=== PATIENT | female | born 1980 | race American Indian/Alaskan Native ===

== ENCOUNTER 2016-10-04 16:07 | Emergency (ER) | payer SELFPAY ==
[2016-10-04 17:03] LABS: Bacteria,Urine 3+ /HPF (Negative); Bilirubin,Urine NEG (Negative); Blood,Urine SM (Negative); Ketones,Urine NEG (Negative); Leukocyte Esterase,Urine LG (Negative); Mucus,Urine 2+ /HPF; Nitrite,Urine NEG (Negative); Urobilinogen,Urine < 2.0 mg/dL (<2.0)
--- NOTE | 2016-10-04 19:49 | Emergency Department Report ---
ED Female HPI - General Chief complaint: Urogenital-Female Stated complaint: VAG IRRATATION Time Seen by Provider: 10/04/16 18:53 Source: patient Mode of arrival: Ambulatory Limitations: No Limitations - History of Present Illness Complaint: vaginal discharge - Related Data Previous Rx's Medication Instructions Recorded Last Taken Type Albuterol Sulfate [Ventolin HFA] 2 puff IH Q4H PRN #1 hfa.aer.ad 12/20/12 Unknown Rx HYDROcodone/APAP 5-325 [[place] 1 each PO Q6HR PRN #10 tablet 12/20/12 Unknown Rx 5/325 mg] Allergies Allergy/AdvReac Type Severity Reaction Status Date / Time aspirin Allergy Swelling Verified 12/20/12 00:40 Penicillins Allergy Hives Verified 12/20/12 00:40 ED Review of Systems ROS: Stated complaint: VAG IRRATATION Other details as noted in HPI ED Past Medical Hx - Past Medical History Additional medical history: Heart murmur - Surgical History Additional Surgical History: Tube ligation - Social History Smoking Status: Current Every Day Smoker Substance Use Type: None - Medications Home Medications: Home Medications Medication Instructions Recorded Confirmed Last Taken Type Albuterol Sulfate [Ventolin HFA] 2 puff IH Q4H PRN #1 hfa.aer.ad 12/20/12 Unknown Rx HYDROcodone/APAP 5-325 [[place] 1 each PO Q6HR PRN #10 tablet 12/20/12 Unknown Rx 5/325 mg] ED Physical Exam - General Limitations: No Limitations ED Course Vital Signs 10/04/16 16:29 Temperature 98.6 F Pulse Rate 102 H Respiratory 20 Rate Blood Pressure 116/79 O2 Sat by Pulse 100 Oximetry Critical care attestation.: If time is entered above; I have spent that time in minutes in the direct care of this critically ill patient, excluding procedure time. ED Disposition Condition: Stable Referrals: PRIMARY CARE, [Primary Care Provider] - 3-5 Days
--- NOTE | 2016-10-04 21:02 | Emergency Department Report ---
Entered by BROWN MULLER, acting as scribe for MAGAN FITZPATRICK PA. ED Female HPI - General Chief complaint: Urogenital-Female Stated complaint: VAG IRRATATION Time Seen by Provider: 10/04/16 18:53 Source: patient Mode of arrival: Ambulatory Limitations: No Limitations - History of Present Illness Initial comments: 36 year old female presents to ED with c/o vaginal irritation and discharge for about 1 week. Patient reports she felt vaginal itching with thick cottage cheese discharge. Patient reports using sex toys but denies douching and vaginal bleeding. Patient notes she had Hx of STD (trichomoniasis) in 2011. Patient denies frequency, urgency, fever, chills, abd pain, nausea, and vomiting. Patient states she smokes cigarettes daily and PMHx of heart murmur. Allergic to ASA and penicillin. MD Complaint: vaginal discharge (thick cottage cheese ), possible STD -: days(s) (7) Severity: moderate Severity scale (0 -10): 4 Quality: burning Consistency: constant Improves with: none Worsens with: urination, movement Are you Now?: No Associated Symptoms: denies other symptoms, vaginal discharge, dysuria. denies : vaginal bleeding, abdominal pain, nausea/vomiting, fever/chills, headaches, hematuria, weakness - Related Data Sexually active: Yes (Partner was present in the room) Previous Rx's Medication Instructions Recorded Last Taken Type Albuterol Sulfate [Ventolin HFA] 2 puff IH Q4H PRN #1 hfa.aer.ad 12/20/12 Unknown Rx HYDROcodone/APAP 5-325 [[place] 1 each PO Q6HR PRN #10 tablet 12/20/12 Unknown Rx 5/325 mg] Fluconazole [Diflucan TAB] 150 mg PO ONCE #1 tablet 10/04/16 Unknown Rx metroNIDAZOLE [Flagyl TAB] 500 mg PO Q12HR #14 tab 10/04/16 Unknown Rx Allergies Allergy/AdvReac Type Severity Reaction Status Date / Time aspirin Allergy Swelling Verified 12/20/12 00:40 Penicillins Allergy Hives Verified 12/20/12 00:40 ED Review of Systems Comment: All other systems reviewed and negative Constitutional: denies: chills, fever Respiratory: denies: cough, shortness of breath, wheezing Cardiovascular: denies: chest pain, palpitations Gastrointestinal: denies: abdominal pain, nausea, vomiting, diarrhea Genitourinary: dysuria. denies: urgency, frequency, discharge Musculoskeletal: denies: back pain, joint swelling, arthralgia Skin: denies: rash, lesions Neurological: denies: headache, weakness, paresthesias ED Past Medical Hx - Past Medical History Additional medical history: Heart murmur - Surgical History Additional Surgical History: Tube ligation - Social History Smoking Status: Current Every Day Smoker Substance Use Type: None - Medications Home Medications: Home Medications Medication Instructions Recorded Confirmed Last Taken Type Albuterol Sulfate [Ventolin HFA] 2 puff IH Q4H PRN #1 hfa.aer.ad 12/20/12 Unknown Rx HYDROcodone/APAP 5-325 [[place] 1 each PO Q6HR PRN #10 tablet 12/20/12 Unknown Rx 5/325 mg] Fluconazole [Diflucan TAB] 150 mg PO ONCE #1 tablet 10/04/16 Unknown Rx metroNIDAZOLE [Flagyl TAB] 500 mg PO Q12HR #14 tab 10/04/16 Unknown Rx ED Physical Exam - General Limitations: No Limitations General appearance: alert, in no apparent distress - Head Head exam: Present: atraumatic, normocephalic, normal inspection - Eye Eye exam: Present: normal appearance, PERRL, EOMI - ENT ENT exam: Present: mucous membranes moist - Neck Neck exam: Present: normal inspection, full ROM. Absent: tenderness, meningismus - Respiratory Respiratory exam: Present: normal lung sounds bilaterally. Absent: respiratory distress, wheezes, rales, rhonchi, stridor - Cardiovascular Cardiovascular Exam: Present: regular rate, normal rhythm. Absent: systolic murmur, diastolic murmur, rubs, gallop - GI/Abdominal GI/Abdominal exam: Present: soft, normal bowel sounds. Absent: distended, tenderness, guarding, rebound, rigid, diminished bowel sounds - External exam: Present: normal external exam Speculum exam: Present: vaginal discharge (thick white cheese like vaginal discharge with fishy odor) Bi-manual exam: Present: normal bi-manual exam - Extremities Exam Extremities exam: Present: normal inspection, full ROM, normal capillary refill. Absent: tenderness, pedal edema, joint swelling - Back Exam Back exam: Present: normal inspection, full ROM. Absent: tenderness - Neurological Exam Neurological exam: Present: alert, oriented X3, CN II-XII intact - Psychiatric Psychiatric exam: Present: normal affect, normal mood - Skin Skin exam: Present: warm, dry, intact, normal color. Absent: rash ED Course Vital Signs 10/04/16 16:29 Temperature 98.6 F Pulse Rate 102 H Respiratory 20 Rate Blood Pressure 116/79 O2 Sat by Pulse 100 Oximetry ED Medical Decision Making - Medical Decision Making A/P: Bacterial vaginosis, vaginal candidiasis 1-fluconazole, metronidazole for empiric treatment of BV and vaginal candidiasis 2-follow up with [facility] 3-chlamydia and gonorrhea cultures sent ED Disposition Clinical Impression: Bacterial vaginosis, Vaginal candidiasis Disposition: TO HOME OR SELFCARE Is pt being admited?: No Does the pt Need Aspirin: No Condition: Stable Instructions: Bacterial Vaginosis (ED), Vulvovaginal Candidiasis (ED) Prescriptions: Fluconazole [Diflucan TAB] 150 mg PO ONCE #1 tablet metroNIDAZOLE [Flagyl TAB] 500 mg PO Q12HR #14 tab Referrals: [facility] [Provider Group] - 3-5 Days [facility] [Outside] - 3-5 Days Forms: Accompanied Note, STI Treatment and Prevention, Work/School Release Form (ED) Time of Disposition: 20:47 This documentation as recorded by the RENZO rodrigez PEARL,accurately reflects the service I personally performed and the decisions made by me,MAGAN FITZPATRICK PA.
[2016-10-04 22:31] VITALS: BP 123/71
== END 2016-10-04 20:50 | disposition home or self-care (01) ==
LOC: ED 16:07
DX: N76.0 Acute vaginitis (principal); B37.3 Candidiasis of vulva and vagina
CPT/HCPCS: 81001; 81025; 87210; 87591

== ENCOUNTER 2017-03-26 20:31 | Emergency (ER) | payer SELFPAY ==
[2017-03-26 21:43] LABS: Bacteria,Urine 1+ /HPF (Negative); Bilirubin,Urine NEG (Negative); Blood,Urine NEG (Negative); Color,Urine Yellow (Yellow); HCG Qualitative,Urine Negative (Negative); Mucus,Urine FEW /HPF; Nitrite,Urine NEG (Negative); Protein,Urine <15 mg/dL mg/dL (Negative); Urobilinogen,Urine < 2.0 mg/dL (<2.0)
[2017-03-27] MEDS ORDERED: NORCO 7.5/325 PO ONE (00:12)
--- NOTE | 2017-03-27 01:11 | Emergency Department Report ---
ED ENT HPI - General Chief complaint: Dental/Oral Stated complaint: Abscessed Tooth Time Seen by Provider: 03/26/17 23:46 Source: patient Mode of arrival: Ambulatory Limitations: No Limitations - History of Present Illness Initial comments: This is a 37 y.o. female that presents with left facial swelling from tooth abscess. Patient states pain in tooth on the left side of mouth started 3 days ago. She went to work and it was so hard to hold her head up. When she woke up the entire left side of her face was swollen. She went to [facility] and they told her the dentist was not in and to f/u in the ER. She went home and took ibuprofen for pain. Pain is 10/10 on pain scale, throbbing, and constant. She felt something drain down from the top of her mouth. She asked her son to look in her mouth and he said it was green pus coming from the hole in the top of her mouth on the left side. Patent reports tooth was pulled years ago and don't understand how a abscess could get there. Denies numbness, tingling, and difficulty swallowing. MD complaint: tooth pain (left side, upper) -: days(s) (4) Location: tooth # (14, extracted) Severity: severe Severity scale (0 -10): 10 Quality: aching, constant, other (throbbing) Consistency: constant Improves with: none Worsens with: eating, rest Context- Dental: history of dental caries Associated Symptoms: gum swelling, toothache. denies: fever, cough, pain with swallowing, sore throat, tinnitus, hearing loss, discharge from ear, rhinorrhea - Related Data Previous Rx's Medication Instructions Recorded Last Taken Type Albuterol Sulfate [Ventolin HFA] 2 puff IH Q4H PRN #1 hfa.aer.ad 12/20/12 Unknown Rx HYDROcodone/APAP 5-325 [[place] 1 each PO Q6HR PRN #10 tablet 12/20/12 Unknown Rx 5/325 mg] Fluconazole [Diflucan TAB] 150 mg PO ONCE #1 tablet 10/04/16 Unknown Rx metroNIDAZOLE [Flagyl TAB] 500 mg PO Q12HR #14 tab 10/04/16 Unknown Rx Clindamycin [Clindamycin CAP] 300 mg PO Q8H 7 Days #21 cap 03/27/17 Unknown Rx traMADol [Ultram 50 MG tab] 50 mg PO Q6HR PRN #20 tablet 03/27/17 Unknown Rx Allergies Allergy/AdvReac Type Severity Reaction Status Date / Time aspirin Allergy Swelling Verified 12/20/12 00:40 Penicillins Allergy Hives Verified 12/20/12 00:40 ED Dental HPI - General Chief complaint: Dental/Oral Stated complaint: Abscessed Tooth Time Seen by Provider: 03/26/17 23:46 Source: patient Mode of arrival: Ambulatory Limitations: No Limitations - Related Data Previous Rx's Medication Instructions Recorded Last Taken Type Albuterol Sulfate [Ventolin HFA] 2 puff IH Q4H PRN #1 hfa.aer.ad 12/20/12 Unknown Rx HYDROcodone/APAP 5-325 [[place] 1 each PO Q6HR PRN #10 tablet 12/20/12 Unknown Rx 5/325 mg] Fluconazole [Diflucan TAB] 150 mg PO ONCE #1 tablet 10/04/16 Unknown Rx metroNIDAZOLE [Flagyl TAB] 500 mg PO Q12HR #14 tab 10/04/16 Unknown Rx Clindamycin [Clindamycin CAP] 300 mg PO Q8H 7 Days #21 cap 03/27/17 Unknown Rx traMADol [Ultram 50 MG tab] 50 mg PO Q6HR PRN #20 tablet 03/27/17 Unknown Rx Allergies Allergy/AdvReac Type Severity Reaction Status Date / Time aspirin Allergy Swelling Verified 12/20/12 00:40 Penicillins Allergy Hives Verified 12/20/12 00:40 ED Review of Systems ROS: Stated complaint: Abscessed Tooth Other details as noted in HPI Constitutional: denies: chills, fever ENT: dental pain (draining abscess at #14 extracted gum), congestion. denies: ear pain, throat pain, hearing loss, epistaxis Respiratory: denies: cough, shortness of breath, wheezing Cardiovascular: denies: chest pain, palpitations Gastrointestinal: denies: abdominal pain, nausea, diarrhea Neurological: denies: headache, weakness, paresthesias ED Past Medical Hx - Past Medical History Previous Medical History?: Yes Additional medical history: Heart murmur - Surgical History Past Surgical History?: Yes Additional Surgical History: Tube ligation - Social History Smoking Status: Current Every Day Smoker Substance Use Type: None - Medications Home Medications: Home Medications Medication Instructions Recorded Confirmed Last Taken Type Albuterol Sulfate [Ventolin HFA] 2 puff IH Q4H PRN #1 hfa.aer.ad 12/20/12 Unknown Rx HYDROcodone/APAP 5-325 [[place] 1 each PO Q6HR PRN #10 tablet 12/20/12 Unknown Rx 5/325 mg] Fluconazole [Diflucan TAB] 150 mg PO ONCE #1 tablet 10/04/16 Unknown Rx metroNIDAZOLE [Flagyl TAB] 500 mg PO Q12HR #14 tab 10/04/16 Unknown Rx Clindamycin [Clindamycin CAP] 300 mg PO Q8H 7 Days #21 cap 03/27/17 Unknown Rx traMADol [Ultram 50 MG tab] 50 mg PO Q6HR PRN #20 tablet 03/27/17 Unknown Rx ED Physical Exam - General Limitations: No Limitations General appearance: alert, in no apparent distress, obese - ENT ENT exam: Present: mucous membranes moist, other (pus discharge from abscess, # 14 gum, swelling to left mandible) - Neck Neck exam: Present: normal inspection, full ROM. Absent: lymphadenopathy, thyromegaly - Respiratory Respiratory exam: Present: normal lung sounds bilaterally. Absent: respiratory distress - Cardiovascular Cardiovascular Exam: Present: regular rate, normal rhythm. Absent: systolic murmur, diastolic murmur, rubs, gallop - Neurological Exam Neurological exam: Present: alert, oriented X3, normal gait - Skin Skin exam: Present: warm, dry, intact, normal color, other. Absent: rash ED Course Vital Signs 03/26/17 03/27/17 20:37 00:18 Temperature 98.3 F Pulse Rate 89 Respiratory 18 18 Rate Blood Pressure 145/87 O2 Sat by Pulse 100 Oximetry ED Medical Decision Making - Medical Decision Making This is a 37-year-old female that presents with tooth abscess and left side facial swelling for 3 days. Patient is stable and was examined by me. Given norco once in ER. Susceptible of dental abscess and dental caries. Discussed plan with patient. She agreed with ER plan. Discharged home with clindamycin and tramadol. Follow up with dentist and referral to [facility]. Critical care attestation.: If time is entered above; I have spent that time in minutes in the direct care of this critically ill patient, excluding procedure time. ED Disposition Clinical Impression: Tooth abscess, Dental caries Disposition: TO HOME OR SELFCARE Is pt being admited?: No Does the pt Need Aspirin: No Condition: Stable Instructions: Toothache (ED), Dental Abscess (ED) Additional Instructions: Complete all days of clindamycin as prescribed for 14 days. Follow up with Dentist at [facility] in 24-72 hours. Prescriptions: Clindamycin [Clindamycin CAP] 300 mg PO Q8H 7 Days #21 cap traMADol [Ultram 50 MG tab] 50 mg PO Q6HR PRN #20 tablet PRN Reason: Pain Referrals: [facility] [Outside] - 3-5 Days Time of Disposition: 01:34 Print Language: INDONESIAN
[2017-03-27 01:48] VITALS: BP 140/82
== END 2017-03-27 01:48 | disposition home or self-care (01) ==
LOC: ED 20:31
DX: K04.7 Periapical abscess without sinus (principal); F17.200 Nicotine dependence, unspecified, uncomplicated; Z98.51 Tubal ligation status; Z88.0 Allergy status to penicillin; Z88.6 Allergy status to analgesic agent
CPT/HCPCS: 81001; 81025; 99283

== ENCOUNTER 2017-10-04 20:55 | Emergency (ER) | payer SELFPAY ==
[2017-10-04 22:18] VITALS: BP 126/81
--- NOTE | 2017-10-04 23:27 | Emergency Department Report ---
ED Headache HPI - General Chief Complaint: Headache Stated Complaint: HEADACHE, NAUSEA Time Seen by Provider: 10/04/17 23:22 Source: patient - History of Present Illness Initial Comments: 37-year-old -[place] female comes in complaining of headache with nausea 5 days. Patient denies vomiting and admits to irregular menses. Patient has no injuries to the head. She reports that noise makes it worse. She reports that she's been taking Tylenol Extra Strength the headache would go away and then come right back worse. She admits to decrease in appetite. Timing/Duration: other (5 days) Quality: severe, throbbing Head Injury Location: temporal Recent Head Trauma: no recent headache/trauma Modifying Factors: improves with: exposure to light, other (sounds make it worse ) Associated Symptoms: nausea/vomiting (nausea and no vomiting). denies: facial pain, fever/chills, nasal drainage, sinus infection, stiff neck Allergies/Adverse Reactions: Allergies aspirin Allergy (Verified 12/20/12 00:40) Swelling Penicillins Allergy (Verified 12/20/12 00:40) Hives Home Medications: Ambulatory Orders Albuterol Sulfate [Ventolin HFA] 2 puff IH Q4H PRN #1 hfa.aer.ad 12/20/12 HYDROcodone/APAP 5-325 [[place] 5/325 mg] 1 each PO Q6HR PRN #10 tablet 12/20/12 Fluconazole [Diflucan TAB] 150 mg PO ONCE #1 tablet 10/04/16 metroNIDAZOLE [Flagyl TAB] 500 mg PO Q12HR #14 tab 10/04/16 Clindamycin [Clindamycin CAP] 300 mg PO Q8H 7 Days #21 cap 03/27/17 traMADol [Ultram 50 MG tab] 50 mg PO Q6HR PRN #20 tablet 03/27/17 ED Review of Systems ROS: Stated complaint: HEADACHE, NAUSEA Other details as noted in HPI Constitutional: denies: chills, fever Genitourinary: abnormal menses Neurological: headache ED Past Medical Hx - Past Medical History Additional medical history: Heart murmur - Surgical History Additional Surgical History: Tube ligation - Social History Smoking Status: Current Every Day Smoker Substance Use Type: None - Medications Home Medications: Home Medications Medication Instructions Recorded Confirmed Last Taken Type Albuterol Sulfate [Ventolin HFA] 2 puff IH Q4H PRN #1 hfa.aer.ad 12/20/12 Unknown Rx HYDROcodone/APAP 5-325 [[place] 1 each PO Q6HR PRN #10 tablet 12/20/12 Unknown Rx 5/325 mg] Fluconazole [Diflucan TAB] 150 mg PO ONCE #1 tablet 10/04/16 Unknown Rx metroNIDAZOLE [Flagyl TAB] 500 mg PO Q12HR #14 tab 10/04/16 Unknown Rx Clindamycin [Clindamycin CAP] 300 mg PO Q8H 7 Days #21 cap 03/27/17 Unknown Rx traMADol [Ultram 50 MG tab] 50 mg PO Q6HR PRN #20 tablet 03/27/17 Unknown Rx ED Physical Exam - General Limitations: No Limitations General appearance: alert, in no apparent distress - Head Head exam: Present: atraumatic, normocephalic - Eye Eye exam: Present: EOMI Pupils: Present: normal accommodation - ENT ENT exam: Present: mucous membranes moist - Neck Neck exam: Present: normal inspection, full ROM. Absent: tenderness, lymphadenopathy - Respiratory Respiratory exam: Present: normal lung sounds bilaterally. Absent: respiratory distress - Cardiovascular Cardiovascular Exam: Present: regular rate, normal rhythm. Absent: systolic murmur, diastolic murmur, rubs, gallop - GI/Abdominal GI/Abdominal exam: Present: soft, normal bowel sounds. Absent: distended, tenderness - Extremities Exam Extremities exam: Present: normal inspection, full ROM. Absent: tenderness - Neurological Exam Neurological exam: Present: alert, oriented X3 - Expanded Neurological Exam Expanded Cranial nerves: EOM's Intact: Normal, Gag Reflex: Normal, Tongue Deviation: Normal, Nystagmus: Normal, Facial Sensation: Normal Cerebellar function: Finger to Nose: Normal, Heel to [place]: Normal, [place]: Normal Motor strength exam: RUE: 5, LUE: 5, RLE: 5, LLE: 5 Best Eye Response ([place]): (4) open spontaneously Best Motor Response ([place]): (6) obeys commands Best Verbal Response ([place]): (5) oriented [place] Total: 15 - Psychiatric Psychiatric exam: Present: normal affect, normal mood ED Course Vital Signs 10/04/17 10/04/17 10/05/17 22:11 22:22 00:05 Temperature 98.0 F 98 F Pulse Rate 86 88 79 Respiratory 18 20 16 Rate Blood Pressure 126/81 126/81 O2 Sat by Pulse 100 100 99 Oximetry - Reevaluation(s) Reevaluation #1: 10/04/17 23:37 Patient reports that her headache is resolved since having the medication. ED Medical Decision Making - Medical Decision Making Patient has been evaluated by this provider in fast track. Patient be given IV for Toradol, Benadryl, Reglan Critical care attestation.: If time is entered above; I have spent that time in minutes in the direct care of this critically ill patient, excluding procedure time. ED Disposition Clinical Impression: Acute headache Qualifiers: Headache type: tension-type Intractability: intractable Qualified Code(s): G44.201 - Tension-type headache, unspecified, intractable Disposition: DC-01 TO HOME OR SELFCARE Is pt being admited?: No Does the pt Need Aspirin: No Condition: Stable Instructions: Acute Headache (ED) Additional Instructions: Please follow up with her primary care provider if the headaches return. Referrals: [facility]IMARY [facility] [Primary Care Provider] - 3-5 Days [facility] [Provider Group] - 3-5 Days Forms: Accompanied Note, Work/School Release Form(ED)
[2017-10-04] MEDS ORDERED: BENADRYL IV ONE (23:30)
[2017-10-04] MEDS ORDERED: REGLAN IV ONE (23:30)
[2017-10-04] MEDS ORDERED: TORADOL IV ONE (23:30)
[2017-10-04] MEDS ORDERED: REGLAN ONE (23:31)
[2017-10-04] MEDS ORDERED: BENADRYL ONE (23:31)
[2017-10-04] MEDS ORDERED: TORADOL ONE (23:31)
== END 2017-10-05 00:05 | disposition home or self-care (01) ==
LOC: ED 20:55
DX: G44.201 Tension-type headache, unspecified, intractable (principal); N92.6 Irregular menstruation, unspecified; F17.200 Nicotine dependence, unspecified, uncomplicated; Z98.51 Tubal ligation status; Z79.899 Other long term (current) drug therapy; Z88.6 Allergy status to analgesic agent; Z88.0 Allergy status to penicillin
CPT/HCPCS: 96374; 96375; 99282; J1200; J1885; J2765